=== PATIENT | male | born 1950 | race African-American/Black ===

== ENCOUNTER 2024-05-04 00:08 | Emergency (ER) | payer OTHER ==
[~2024-05-04] VITALS: Ht 172.7 cm; Wt 70.0 kg
[2024-05-04 00:12] VITALS: O2SAT 98
[2024-05-04 00:50] VITALS: TEMP 36.7
[2024-05-04 02:02] VITALS: BP 132/82; PULSE 89; RESP 16; O2SAT 98
== END 2024-05-04 02:05 | disposition left against medical advice (07) ==
LOC: ER 00:08
DX: R09.A2 Foreign body sensation, throat (principal); E11.9 Type 2 diabetes mellitus without complications; F02.80 Dementia in other diseases classified elsewhere, unspecified severity, without behavioral disturbance, psychotic disturbance, mood disturbance, and anxiety; G20.A1 Parkinson's disease without dyskinesia, without mention of fluctuations
CPT/HCPCS: 99283